=== PATIENT | male | born 1970 | race African-American/Black ===

== ENCOUNTER 2016-07-01 10:36 | Emergency (ER) | payer MEDICARE, MEDICAID ==
[~2016-07-01] VITALS: Ht 185.4 cm; Wt 118.1 kg
[~2016-07-01 10:36] MED LIST: ASPI-1035 PO; BENAZEPRIL; GLYB2.5T4 PO; HYDR25TA PO; INSULIN; LISI40TA4 PO; METF500T4 PO; PENT400T2 PO
[2016-07-01] MEDS ORDERED: LIRA0.6P2 SQ (11:03)
[2016-07-01] MEDS ORDERED: AMLO10TA80 PO (11:03)
[2016-07-01] MEDS ORDERED: MAGNESIUM/ALUMINUM HYDROXIDE/SIMETHICONE 30ML UDC PO STA (11:26)
[2016-07-01] MEDS ORDERED: FAMOTIDINE 20MG TABLET PO ONE (11:30)
[2016-07-01] MEDS ORDERED: FLUORESCEIN SODIUM 1MG/STRIP RIGHTEYE ONE (11:30)
[2016-07-01] MEDS ORDERED: TETRACAINE 0.5% OPHTH DROPS 4ML RIGHTEYE ONE (11:30)
[2016-07-01 11:40] LABS: BASOPHILS % 0.5 % (0.0-2.0); EOSINOPHILS % 0.8 % (0.0-5.0); HEMATOCRIT. 37.7 % (42.0-52.0); HEMOGLOBIN. 12.5 g/dL (14.0-18.0); LYMPHOCYTES % 23.4 % (20.0-50.0); MEAN CORPUSCULAR HEMOGLOBIN 31.6 pg (28.0-32.0); MEAN CORPUSCULAR HGB CONC 33.3 g/dL (31.0-37.0); MEAN CORPUSCULAR VOLUME 94.9 fL (80.0-94.0); MEAN PLATELET VOLUME 9.1 fl (7.4-10.4); MONOCYTES % 7.2 % (2.0-8.0); NEUTROPHILS % 68.1 % (40.0-76.0); PLATELET 141 x1000/uL (130-400); RED BLOOD CELL COUNT 3.97 mill/uL (4.7-6.1); RED CELL DISTRIBUTION WIDTH 12.7 % (11.6-14.6); WHITE BLOOD COUNT 7.3 x1000/uL (4.5-11.0)
[2016-07-01 11:57] LABS: ALANINE AMINOTRANSFERASE 19 IU/L (13-61); ALBUMIN 3.3 g/dL (3.4-5.0); ANION GAP 9; CALCIUM 8.2 mg/dL (8.5-10.1); CARBON DIOXIDE 27 mEq/L (21-32); CHLORIDE 114 mEq/L (98-107); INDEX HEMOLYSI 1 (1-3); INDEX ICTERIC 1 (1-4); INDEX LIPEMIC 1 (1-3); LIPASE 228 IU/L (73-393); UREA NITROGEN BLOOD 21 mg/dL (7-21); eGFR 37 mL/min (>60)
[2016-07-01] MEDS ORDERED: SODIUM POLYSTYRENE SULFONATE 15 G/60 ML BOT PO ONE (12:45)
[2016-07-01] MEDS ORDERED: SODIUM BICARBONATE 8.4% 1 MEQ/ML 50ML SYR IV ONE (13:00)
[2016-07-01 13:05] VITALS: BP 138/79
== END 2016-07-01 13:06 | disposition home or self-care (01) ==
LOC: ER 10:37
DX: E87.5 Hyperkalemia (principal); N28.9 Disorder of kidney and ureter, unspecified; R10.13 Epigastric pain; H57.11 Ocular pain, right eye; I10 Essential (primary) hypertension; E11.9 Type 2 diabetes mellitus without complications; F17.200 Nicotine dependence, unspecified, uncomplicated; Z79.82 Long term (current) use of aspirin; Z79.4 Long term (current) use of insulin
CPT/HCPCS: 36415; 71010; 80053; 83690; 85025; 93005; 96365; 99285; J3490

== ENCOUNTER 2017-09-17 04:44 | Emergency (ER) | payer MEDICARE, MEDICAID ==
[~2017-09-17] VITALS: Ht 185.4 cm; Wt 106.0 kg
[2017-09-17] MEDS ORDERED: IPRATROPIUM/ALBUTEROL 0.5-3(2.5)MG/3ML NEB ONE (06:28)
[2017-09-17] MEDS ORDERED: ALBUTEROL (0.083%) 2.5MG/3ML NEB HHN STA (06:29)
[2017-09-17] MEDS ORDERED: IPRATROPIUM BROMIDE (0.02%) 0.5MG/2.5ML NEB HHN STA (06:29)
[2017-09-17] MEDS ORDERED: PREDNISONE 20MG TABLET PO STA (06:29)
[2017-09-17] MEDS ORDERED: ALBUTEROL (0.5%) 2.5MG/0.5ML NEB HHN ONE (06:41)
[2017-09-17 07:00] LABS: BASOPHILS % 0.7 % (0.0-2.0); EOSINOPHILS % 1.6 % (0.0-5.0); HEMATOCRIT. 35.8 % (42.0-52.0); HEMOGLOBIN. 12.2 g/dL (14.0-18.0); MEAN CORPUSCULAR HEMOGLOBIN 32.8 pg (28.0-32.0); MEAN CORPUSCULAR VOLUME 96.5 fL (80.0-94.0); MEAN PLATELET VOLUME 9.6 fl (7.4-10.4); MONOCYTES % 9.3 % (2.0-8.0); NEUTROPHILS % 64.4 % (40.0-76.0); PLATELET 127 x1000/uL (130-400); RED BLOOD CELL COUNT 3.71 mill/uL (4.7-6.1)
[2017-09-17 07:04] LABS: CHLORIDE 110 mEq/L (98-107)
[2017-09-17 07:07] LABS: INR 1.1; PARTIAL THROMBOPLASTIN TIME 27.4 sec (23.4-31.0); PROTHROMBIN TIME 11.6 sec (9.4-11.6)
[2017-09-17] MEDS ORDERED: FUROSEMIDE 40MG/4ML VIAL IVP ONE (08:15)
[2017-09-17 09:51] VITALS: BP 160/76
== END 2017-09-17 10:04 | disposition left against medical advice (07) ==
LOC: ER 04:44 → ENRESERV 10:08 → EDRESERV 10:08 → CANRESERV 10:08 → CANBEDREQ 11:42
DX: I50.40 Unspecified combined systolic (congestive) and diastolic (congestive) heart failure (principal); J44.1 Chronic obstructive pulmonary disease with (acute) exacerbation; E11.8 Type 2 diabetes mellitus with unspecified complications; F17.200 Nicotine dependence, unspecified, uncomplicated; I10 Essential (primary) hypertension; N28.9 Disorder of kidney and ureter, unspecified; Z86.73 Personal history of transient ischemic attack (TIA), and cerebral infarction without residual deficits; Z98.890 Other specified postprocedural states
CPT/HCPCS: 36415; 71045; 80053; 83605; 83690; 83880; 84443; 84484; 85025; 85610; 85730; 87040; 93005; 94640; 96374; 99291; J1940; J7512; J7611; J7620

== ENCOUNTER 2018-09-12 15:15 | Emergency (ER) | payer MEDICARE, MEDICAID ==
[~2018-09-12] VITALS: Ht 185.4 cm; Wt 105.0 kg
[2018-09-12 15:39] VITALS: BP 151/74
== END 2018-09-12 16:00 | disposition home or self-care (01) ==
LOC: ER 15:15
DX: E11.621 Type 2 diabetes mellitus with foot ulcer (principal); L97.429 Non-pressure chronic ulcer of left heel and midfoot with unspecified severity; R03.0 Elevated blood-pressure reading, without diagnosis of hypertension; F17.210 Nicotine dependence, cigarettes, uncomplicated
CPT/HCPCS: 99283

== ENCOUNTER 2018-09-28 04:41 | Inpatient (IN) | payer MEDICARE, MEDICAID ==
[~2018-09-28] VITALS: Ht 182.9 cm; Wt 108.6 kg
[2018-09-28] MEDS ORDERED: PREDNISONE 20MG TABLET PO STA (05:32)
[2018-09-28] MEDS ORDERED: IPRATROPIUM BROMIDE (0.02%) 0.5MG/2.5ML NEB HHN STA ×2 (05:32→07:27)
[2018-09-28] MEDS ORDERED: ALBUTEROL (0.083%) 2.5MG/3ML NEB HHN STA ×2 (05:32→07:27)
[2018-09-28] MEDS ORDERED: ACETAMINOPHEN 325MG TABLET PO ONE (08:00)
[2018-09-28 08:26] LABS: BG BASE EXCESS -5.3 mmol/L (-2.0-2.0); BG CARBOXYHEMOGLOBIN 0.6 % (0.5-1.5); BG DEOXYHEMOGLOBIN 1.3 % (0.0-5.0); BG FRACTION INSPIRED OXYGEN 60; BG HCO3 ACT 18.1 mmol/L (22.0-26.0); BG METHEMOGLOBIN 0.2 % (0.0-1.5); BG OXYGEN SATURATION 98.7 % (92.0-98.5); BG OXYHEMOGLOBIN 97.9 % (94.0-97.0); BG PCO2 28.4 mmHg (35.0-45.0); BG PH 7.422 (7.350-7.450); BG PO2 196.8 mmHg (75.0-100.0); BG SAMPLE SITE LEFT RADIAL; BG TOTAL HEMOGLOBIN 10.7 g/dL (12.0-18.0)
[2018-09-28 08:59] LABS: BASOPHILS % 0.5 % (0.0-2.0); EOSINOPHILS % 0.1 % (0.0-5.0); HEMATOCRIT. 32.3 % (42.0-52.0); HEMOGLOBIN. 10.8 g/dL (14.0-18.0); LYMPHOCYTES % 11.2 % (20.0-50.0); MEAN CORPUSCULAR HEMOGLOBIN 33.9 pg (28.0-32.0); MEAN CORPUSCULAR VOLUME 101.3 fL (80.0-94.0); MEAN PLATELET VOLUME 8.5 fl (7.4-10.4); NEUTROPHILS % 80.2 % (40.0-76.0); PLATELET 69 x1000/uL (130-400); RED BLOOD CELL COUNT 3.19 mill/uL (4.7-6.1); RED CELL DISTRIBUTION WIDTH 14.3 % (11.6-14.6)
[2018-09-28 09:02] LABS: CHLORIDE 104 mEq/L (98-107)
[2018-09-28] MEDS ORDERED: ACETAMINOPHEN 325MG TABLET PO PRN (09:45)
[2018-09-28] MEDS ORDERED: CLONIDINE 0.1MG TABLET PO PRN (09:45)
[2018-09-28] MEDS ORDERED: ONDANSETRON HCL 4MG/2ML INJ IV PRN (09:45)
[2018-09-28 11:00] VITALS: BP 141/68
[2018-09-28] MEDS ORDERED: ENOXAPARIN 30MG/0.3ML SYR SUBCUT SCH (11:15)
[2018-09-28 11:30] VITALS: BP 141/68
[2018-09-28] MEDS: FUROSEMIDE 40MG/4ML VIAL IV SCH ×2 (11:36→18:14)
[2018-09-28] MEDS ORDERED: DEXTROSE 50% WATER 50ML SYRINGE IV PRN (11:45)
[2018-09-28] MEDS: BLOOD SUGAR DIAGNOSTIC STRIP TEST SCH ×3 (12:24→21:21)
[2018-09-28] MEDS: INSULIN LISPRO 100 UNITS/ML SUBCUT SCH ×3 (13:35→21:20)
[2018-09-28 15:24] LABS: CLARITY URINE CLEAR (CLEAR); COLOR URINE YELLOW (YELLOW); KETONES URINE NEGATIVE (NEGATIVE); LEUKOCYTE ESTERASE URINE NEGATIVE (NEGATIVE); NITRITE URINE NEGATIVE (NEGATIVE); OCCULT BLOOD URINE 1+ (NEGATIVE); PROTEIN URINE 3+ (NEGATIVE); UROBILINOGEN URINE 0.2 E.U./dL (0.2-1.0)
[2018-09-28 16:00] VITALS: BP 144/81
[2018-09-28] MEDS: IPRATROPIUM/ALBUTEROL 0.5-3(2.5)MG/3ML NEB INH SCH ×2 (16:20→20:44)
[2018-09-28 16:31] LABS: *AMPHETAMINES SCREEN URINE NEGATIVE (NEGATIVE); *BARBITURATES SCREEN URINE NEGATIVE (NEGATIVE); *BENZODIAZEPINES SCREEN URINE NEGATIVE (NEGATIVE); *COCAINE SCREEN URINE NEGATIVE (NEGATIVE); CANNABINOID URINE SCREEN NEGATIVE (NEGATIVE); PHENCYCLIDINE URINE SCREEN NEGATIVE (NEGATIVE)
[2018-09-28 16:32] LABS: METHADONE URINE SCREEN NEGATIVE (NEGATIVE); OPIATES URINE SCREEN NEGATIVE (NEGATIVE)
[2018-09-28] MEDS ORDERED: CARV12.545 PO (16:44)
[2018-09-28] MEDS ORDERED: ASPI-1158 PO (16:44)
[2018-09-28] MEDS ORDERED: ATOR-2 PO (16:44)
[2018-09-28] MEDS ORDERED: PANT40TA4 PO (16:44)
[2018-09-28] MEDS ORDERED: MULT-1116 PO (16:44)
[2018-09-28] MEDS ORDERED: TORS20TA4 PO (16:44)
[2018-09-28] MEDS ORDERED: ALBU90AE IH (16:44)
[2018-09-28] MEDS ORDERED: LOSA25TA26 PO (16:44)
[2018-09-28] MEDS ORDERED: CLOP75TA33 PO (16:44)
[2018-09-28 20:00] VITALS: BP 148/68
[2018-09-28] MEDS ORDERED: LEVVL SQ (21:12)
[2018-09-28] MEDS: CARVEDILOL 3.125 MG TABLET PO SCH (21:20)
[2018-09-29] VITALS: BP 142/64
[2018-09-29] MEDS: IPRATROPIUM/ALBUTEROL 0.5-3(2.5)MG/3ML NEB INH SCH ×4 (01:55→20:53)
[2018-09-29 04:00] VITALS: BP 144/85
[2018-09-29] MEDS: FUROSEMIDE 40MG/4ML VIAL IV SCH (05:55)
[2018-09-29] MEDS: BLOOD SUGAR DIAGNOSTIC STRIP TEST SCH ×4 (05:56→20:58)
[2018-09-29 06:22] LABS: BASOPHILS % 0.8 % (0.0-2.0); EOSINOPHILS % 0.1 % (0.0-5.0); HEMOGLOBIN. 10.6 g/dL (14.0-18.0); LYMPHOCYTES % 15.9 % (20.0-50.0); MEAN CORPUSCULAR HEMOGLOBIN 34.1 pg (28.0-32.0); MEAN CORPUSCULAR VOLUME 100.2 fL (80.0-94.0); MEAN PLATELET VOLUME 10.1 fl (7.4-10.4); MONOCYTES % 13.6 % (2.0-8.0); NEUTROPHILS % 69.6 % (40.0-76.0); PLATELET 77 x1000/uL (130-400); RED BLOOD CELL COUNT 3.09 mill/uL (4.7-6.1); RED CELL DISTRIBUTION WIDTH 14.3 % (11.6-14.6)
[2018-09-29 07:17] LABS: CHLORIDE 102 mEq/L (98-107)
[2018-09-29 07:29] LABS: LDL CHOLESTEROL 54 mg/dL (5-100)
[2018-09-29 07:31] LABS: HDL CHOLESTEROL 38 mg/dL (40-59)
[2018-09-29 08:00] VITALS: BP 141/83
[2018-09-29] MEDS: INSULIN LISPRO 100 UNITS/ML SUBCUT SCH ×4 (09:46→20:57)
[2018-09-29] MEDS: CARVEDILOL 3.125 MG TABLET PO SCH (09:48)
[2018-09-29 12:00] VITALS: BP 147/85
[2018-09-29] MEDS: ASPIRIN 81MG EC TABLET PO SCH (14:09)
[2018-09-29 16:00] VITALS: BP 143/87
[2018-09-29 20:00] VITALS: BP 150/90
[2018-09-29] MEDS: HYDROMORPHONE HCL/PF 2MG/ML CPJ IV PRN (20:17)
[2018-09-29] MEDS: CARVEDILOL 12.5MG TABLET PO SCH (20:18)
[2018-09-30] VITALS: BP 123/76
[2018-09-30] MEDS: IPRATROPIUM/ALBUTEROL 0.5-3(2.5)MG/3ML NEB INH SCH ×4 (01:10→20:35)
[2018-09-30 04:00] VITALS: BP 144/74
[2018-09-30] MEDS: BLOOD SUGAR DIAGNOSTIC STRIP TEST SCH ×4 (07:44→20:38)
[2018-09-30 07:57] LABS: BASOPHILS % 0.7 % (0.0-2.0); EOSINOPHILS % 1.6 % (0.0-5.0); HEMATOCRIT. 30.7 % (42.0-52.0); HEMOGLOBIN. 10.4 g/dL (14.0-18.0); LYMPHOCYTES % 22.8 % (20.0-50.0); MEAN CORPUSCULAR HEMOGLOBIN 34.1 pg (28.0-32.0); MEAN CORPUSCULAR VOLUME 100.7 fL (80.0-94.0); MEAN PLATELET VOLUME 11.2 fl (7.4-10.4); MONOCYTES % 14.7 % (2.0-8.0); NEUTROPHILS % 60.2 % (40.0-76.0); PLATELET 67 x1000/uL (130-400); RED BLOOD CELL COUNT 3.05 mill/uL (4.7-6.1); RED CELL DISTRIBUTION WIDTH 14.6 % (11.6-14.6)
[2018-09-30 08:00] VITALS: BP 134/80
[2018-09-30] MEDS: FUROSEMIDE 40MG/4ML VIAL IV SCH (08:06)
[2018-09-30] MEDS: INSULIN LISPRO 100 UNITS/ML SUBCUT SCH ×4 (08:10→20:38)
[2018-09-30] MEDS: ASPIRIN 81MG EC TABLET PO SCH (08:35)
[2018-09-30] MEDS: CARVEDILOL 12.5MG TABLET PO SCH ×2 (08:36→20:37)
[2018-09-30 12:00] VITALS: BP 142/83
[2018-09-30] MEDS ORDERED: AMLODIPINE 2.5MG TABLET PO NR (12:15)
[2018-09-30 16:00] VITALS: BP 130/80
[2018-09-30 20:00] VITALS: BP 143/82
[2018-10-01] VITALS: BP 141/83
[2018-10-01] MEDS: HYDROMORPHONE HCL/PF 2MG/ML CPJ IV PRN (01:56)
[2018-10-01 04:00] VITALS: BP 128/66
[2018-10-01 06:16] LABS: HIV SCREEN 4G Non Reactive (Non Reactive)
[2018-10-01] MEDS: BLOOD SUGAR DIAGNOSTIC STRIP TEST SCH (06:41)
[2018-10-01 06:48] LABS: BASOPHILS % 0.8 % (0.0-2.0); HEMATOCRIT. 29.9 % (42.0-52.0); HEMOGLOBIN. 10.3 g/dL (14.0-18.0); LYMPHOCYTES % 34.8 % (20.0-50.0); MEAN CORPUSCULAR HEMOGLOBIN 34.1 pg (28.0-32.0); MEAN CORPUSCULAR VOLUME 99.4 fL (80.0-94.0); MEAN PLATELET VOLUME 10.3 fl (7.4-10.4); MONOCYTES % 13.5 % (2.0-8.0); NEUTROPHILS % 46.9 % (40.0-76.0); PLATELET 81 x1000/uL (130-400); RED BLOOD CELL COUNT 3.01 mill/uL (4.7-6.1); RED CELL DISTRIBUTION WIDTH 14.2 % (11.6-14.6)
[2018-10-01 08:00] VITALS: BP 138/74
[2018-10-01] MEDS: INSULIN LISPRO 100 UNITS/ML SUBCUT SCH (08:10)
[2018-10-01] MEDS: IPRATROPIUM/ALBUTEROL 0.5-3(2.5)MG/3ML NEB INH SCH (08:32)
[2018-10-01 08:44] VITALS: BP 138/74
[2018-10-01] MEDS ORDERED: AMLODIPINE 2.5MG TABLET PO SCH (09:00)
[2018-10-01] MEDS: CARVEDILOL 12.5MG TABLET PO SCH (09:17)
[2018-10-01] MEDS: FUROSEMIDE 40MG/4ML VIAL IV SCH (09:18)
[2018-10-01] MEDS: ASPIRIN 81MG EC TABLET PO SCH (09:18)
[2018-10-01] MEDS ORDERED: METO5TAB69 MT (10:43)
[2018-10-01] MEDS ORDERED: ASPI-1393 MT (10:44)
[2018-10-01] MEDS ORDERED: TRAM50TA3 MT (10:47)
[2018-10-01] MEDS ORDERED: POTA20TA82 MT (10:48)
[2018-10-01] MEDS ORDERED: FURO40TA5 PO (10:49)
[2018-10-01] MEDS ORDERED: CARV3.1242 MT (10:49)
[2018-10-01] MEDS ORDERED: AMLO2.5T45 MT (10:50)
[2018-10-03 14:17] LABS: HEPATITIS B SURFACE ANTIGEN NEGATIVE
[2018-10-03 14:39] LABS: HEPATITIS A AB IGM NEGATIVE (NEGATIVE)
== END 2018-10-01 11:15 | disposition home or self-care (01) | DRG 682 ==
LOC: ER 05:09 → 7WST 09:16 → ENRESERV 10:11
PROVIDERS: ADMIT Internal Medicine Nephrology; ATTEND Internal Medicine Nephrology
DX: N17.9 Acute kidney failure, unspecified (principal); J96.01 Acute respiratory failure with hypoxia; I50.23 Acute on chronic systolic (congestive) heart failure; I13.0 Hypertensive heart and chronic kidney disease with heart failure and stage 1 through stage 4 chronic kidney disease, or unspecified chronic kidney disease; E87.2 Acidosis; D61.818 Other pancytopenia; I42.9 Cardiomyopathy, unspecified; N18.9 Chronic kidney disease, unspecified; Z86.73 Personal history of transient ischemic attack (TIA), and cerebral infarction without residual deficits; Z95.810 Presence of automatic (implantable) cardiac defibrillator; Z95.5 Presence of coronary angioplasty implant and graft; J44.9 Chronic obstructive pulmonary disease, unspecified; I25.10 Atherosclerotic heart disease of native coronary artery without angina pectoris; F17.210 Nicotine dependence, cigarettes, uncomplicated; E78.5 Hyperlipidemia, unspecified; E11.621 Type 2 diabetes mellitus with foot ulcer; E11.51 Type 2 diabetes mellitus with diabetic peripheral angiopathy without gangrene; E11.22 Type 2 diabetes mellitus with diabetic chronic kidney disease; I34.0 Nonrheumatic mitral (valve) insufficiency; L97.529 Non-pressure chronic ulcer of other part of left foot with unspecified severity; Z79.02 Long term (current) use of antithrombotics/antiplatelets; Z79.4 Long term (current) use of insulin; Z79.82 Long term (current) use of aspirin; Z79.899 Other long term (current) drug therapy; Z82.49 Family history of ischemic heart disease and other diseases of the circulatory system; Z79.84 Long term (current) use of oral hypoglycemic drugs
CPT/HCPCS: 36415; 36600; 71045; 78582; 80048; 80061; 80305; 82375; 82550; 82805; 82962; 83036; 83735; 83880; 84443; 84484; 86705; 86709; 86803; 87070; 87340; 87389; 93005; 93306; 93970; 94640; 94644; 99285; A9558; J1170; J1815; J1940; J7512; J7611; J7620